=== PATIENT | male | born 1955 | race Two or more races ===

== ENCOUNTER 2018-08-04 20:14 | Emergency (ER) | payer SELFPAY ==
[~2018-08-04] VITALS: Ht 170.2 cm; Wt 86.2 kg
[2018-08-04] MEDS ORDERED: MORPHINE SULFATE 10 MG/ML INJ 1ML SDV IV ONE (21:30)
[2018-08-04] MEDS ORDERED: MORPHINE SULFATE 4 MG/ML SYR/VIAL ONE (21:40)
[2018-08-04] MEDS ORDERED: ACETAMINOPHEN 325 MG TAB PO ONE (22:45)
[2018-08-04 23:01] VITALS: BP 136/92
== END 2018-08-05 00:25 | disposition home or self-care (01) ==
LOC: EDBD 20:14 → ER 20:19
DX: S05.10XA Contusion of eyeball and orbital tissues, unspecified eye, initial encounter (principal); Y08.89XA Assault by other specified means, initial encounter; Y93.89 Activity, other specified; Y99.8 Other external cause status; Y92.89 Other specified places as the place of occurrence of the external cause
CPT/HCPCS: 70450; 70486; 72125; 96374; 99284; J2270